=== PATIENT | female | born 1960 | race Hispanic/Latino ===

== ENCOUNTER 2017-12-30 15:32 | Outpatient (CLI) | payer BC | END 2017-12-30 15:33 | disposition home or self-care (01) | LOC: BICMAMMO 15:32 | PROVIDERS: ATTEND Obstetrics & Gynecology | DX: Z12.31 Encounter for screening mammogram for malignant neoplasm of breast (principal); Z80.3 Family history of malignant neoplasm of breast | CPT/HCPCS: 77063; 77067 ==

== ENCOUNTER 2018-10-09 06:38 | Day surgery (SDC) | payer BC ==
[2018-10-08 12:12] VITALS: BMI 26.6
[2018-10-09] MEDS ORDERED: Midazolam HCl 2 mg/2 ml Vial ONE (08:22)
[2018-10-09] MEDS ORDERED: Betamet Acet/Betamet Na Ph 30 MG/5 ML VIAL ONE (08:22)
[2018-10-09] MEDS ORDERED: Bacitracin Zinc Ointment 30 gm TUBE ONE (08:22)
[2018-10-09] MEDS ORDERED: Bupivacaine PF 0.5% 30 ML VIAL ONE (08:22)
[2018-10-09 08:23] LABS: RBC/HPF 0-3 HPF (0-3); Squamous Epithelial 0-3 HPF (0-3); WBC/HPF 0-3 HPF (0-3)
[2018-10-09 08:24] LABS: Bacteria/HPF None Seen HPF (None Seen); Hyaline Casts/LPF NONE SEEN LPF (0-3 Hyaline); Other Microscopic Description Less than 2 mL rec'd
[2018-10-09] MEDS ORDERED: Fentanyl 100 MCG/2 ML VIAL ONE (08:24)
[2018-10-09] MEDS ORDERED: Ketorolac Tromethamine 30 MG/ML VIAL ONE (09:48)
[2018-10-09] MEDS ORDERED: Glycopyrrolate 0.2 MG/ML 5 ML SYRINGE ONE (14:27)
[2018-10-09] MEDS ORDERED: Dexamethasone 20 MG/5 ML VIAL ONE (14:27)
[2018-10-09] MEDS ORDERED: Lidocaine 1% PF 5 ML VIAL ONE (14:27)
[2018-10-09] MEDS ORDERED: PROPOFOL 200 MG/20 ML VIAL ONE (14:27)
[2018-10-09] MEDS ORDERED: Ondansetron PF 4 MG/2 ML Vial ONE (14:27)
--- NOTE | 2018-10-09 19:38 | OP ---
DATE OF PROCEDURE: 10/09/2018 PREOPERATIVE DIAGNOSIS: Left middle finger ganglion into tendons. POSTOPERATIVE DIAGNOSIS: Left middle finger ganglion into tendons. FINDINGS: Left middle finger ganglion with a stalk and it is going through the tendon into the joint, and its body being involved in the tendon sheath and tendon proper. PROCEDURES PERFORMED: Left middle finger ganglion excision through left middle finger zone 4 tenotomy with extensor tendon repair. SPECIMEN SENT TO THE LAB: 6 mm ganglion. ESTIMATED BLOOD LOSS: Less than 5 mL. TOURNIQUET TIME: 18 minutes. DESCRIPTION OF PROCEDURE: After successful general LMA technique, limb was prepped and draped. The patient had time-out accomplished and we gave her 10 mL of 0.5% Marcaine at the metacarpophalangeal block level. No epinephrine. We then exsanguinated the limb, inflated the tourniquet to 250 mmHg, and then we made a zigzag incision slightly radial to the mass, carried back to the midline and then noticed that the mass was a ganglion. We dissected the ganglion free from its base and made a small tenotomy in the tendon in order to remove all the mass proper, followed this out of the hole into the joint, where we debrided the joint gently with small instruments, leaving only a 5 mm longitudinal more than transverse defect. We then finished the irrigation of the joint, sent the specimen to Pathology Lab, and then ordered followup lab work. The patient left the operating room without evidence of anesthetic or operative complication. We placed the 5-0 Prolene x4 sutures in the 6-mm tenotomy area, we then placed a bulky dressing with a dorsal Boutonniere type splint. Job ID: [id number]
== END 2018-10-09 10:45 | disposition home or self-care (01) ==
LOC: SDC 06:38
PROVIDERS: ATTEND Orthopaedic Surgery Hand Surgery
PROC: 0LB80ZZ Excision of Left Hand Tendon, Open Approach (ICD-10-PCS; principal; 2018-10-09)
PROC: 0LQ80ZZ Repair Left Hand Tendon, Open Approach (ICD-10-PCS; principal; 2018-10-09)
DX: M67.442 Ganglion, left hand (principal); I10 Essential (primary) hypertension; E78.00 Pure hypercholesterolemia, unspecified; Z90.710 Acquired absence of both cervix and uterus; Z98.1 Arthrodesis status; Z88.1 Allergy status to other antibiotic agents; Z88.8 Allergy status to other drugs, medicaments and biological substances; Z79.82 Long term (current) use of aspirin; Z98.890 Other specified postprocedural states
CPT/HCPCS: 81015; 88304; J0131; J0702; J1885; J2250; J3010; S0020

== ENCOUNTER 2019-01-05 08:16 | Outpatient (CLI) | payer BC ==
--- NOTE | 2019-01-05 10:17 | MMO ---
Bilateral MAMMO Bilat Screen [facility]. CLINICAL HISTORY: Patient is 58 years old and is seen for screening. The patient has no family history of breast cancer. The patient has no personal history of cancer. The patient has a history of left Excisional Biopsy in 1993 - benign. VIEWS: The views performed were: bilateral craniocaudal with tomosynthesis and bilateral mediolateral oblique with tomosynthesis. FILMS COMPARED: The present examination has been compared to prior imaging studies performed at [facility] on 10/31/2015, 04/30/2016, 11/12/2016 and 12/30/2017. MAMMOGRAM FINDINGS: The breasts are almost entirely fat. There are no suspicious masses, suspicious calcifications, or new areas of architectural distortion. IMPRESSION: THERE IS NO MAMMOGRAPHIC EVIDENCE OF MALIGNANCY. A ROUTINE FOLLOW-UP MAMMOGRAM IN 1 YEAR IS RECOMMENDED. THE RESULTS OF THIS EXAM WERE SENT TO THE PATIENT. ACR BI-RADS Category 1 - Negative MAMMOGRAPHY NOTE: 1. A negative mammogram report should not delay a biopsy if a dominant of clinically suspicious mass is present. 2. Approximately 10% to 15% of breast cancers are not detected by mammography. 3. Adenosis and dense breasts may obscure an underlying neoplasm.
== END 2019-01-05 08:17 | disposition home or self-care (01) ==
LOC: BICMAMMO 08:16
PROVIDERS: ATTEND Family Medicine
DX: Z12.31 Encounter for screening mammogram for malignant neoplasm of breast (principal)
CPT/HCPCS: 77063; 77067

== ENCOUNTER 2020-01-11 09:56 | Outpatient (CLI) | payer BC ==
--- NOTE | 2020-01-11 10:28 | MMO ---
Bilateral MAMMO Bilat Screen [facility]. CLINICAL HISTORY: Patient is 59 years old and is seen for screening. The patient has no family history of breast cancer. The patient has no personal history of cancer. The patient has a history of left Excisional Biopsy in 1993 - benign. VIEWS: The views performed were: bilateral craniocaudal with tomosynthesis and bilateral mediolateral oblique with tomosynthesis. FILMS COMPARED: The present examination has been compared to prior imaging studies performed at [facility] on 04/30/2016, 11/12/2016, 12/30/2017 and 01/05/2019. This study has been interpreted with the assistance of computer-aided detection. MAMMOGRAM FINDINGS: There are scattered fibroglandular densities. There are stable benign appearing densities seen in both breasts. There are no suspicious masses, suspicious calcifications, or new areas of architectural distortion. IMPRESSION: THERE IS NO MAMMOGRAPHIC EVIDENCE OF MALIGNANCY. A ROUTINE FOLLOW-UP MAMMOGRAM IN 1 YEAR IS RECOMMENDED. THE RESULTS OF THIS EXAM WERE SENT TO THE PATIENT. ACR BI-RADS Category 2 - Benign finding MAMMOGRAPHY NOTE: 1. A negative mammogram report should not delay a biopsy if a dominant of clinically suspicious mass is present. 2. Approximately 10% to 15% of breast cancers are not detected by mammography. 3. Adenosis and dense breasts may obscure an underlying neoplasm. Reported by: ROBERT HUTSON MD Electonically Signed: [id number]
== END 2020-01-11 09:57 | disposition home or self-care (01) ==
LOC: BICMAMMO 09:56
PROVIDERS: ATTEND Family Medicine
DX: Z12.31 Encounter for screening mammogram for malignant neoplasm of breast (principal); Z91.89 Other specified personal risk factors, not elsewhere classified
CPT/HCPCS: 77063; 77067